=== PATIENT | female | born 1980 | race Two or more races ===

== ENCOUNTER 2025-03-26 14:31 | Outpatient (AMB) | payer MEDICAID, SELFPAY ==
[2025-03-26 14:43] VITALS: BP 115/74; PULSE 89; RESP 19; TEMP 36.8; O2SAT 97; BMI 31.9
--- NOTE | 2025-03-26 14:43 | GSCOFFNT_ITS ---
Vital Signs - [facility] 03/26/25 14:43 Height 1.57 m Height Method Stated Weight 78.727 kg Weight Measurement Method Standing Scale BMI 31.9 BP 115/74 Blood Pressure Source Automatic Cuff Blood Pressure Location Left Upper Arm Position Sitting Respiration 19 Pulse 89 Pulse Source Monitor Temp 98.3 F Temp Source Temporal Artery Scan Pulse Oximetry (%) 97 Oxygen Delivery Method Room Air Med/Allergies Allergies & Medications Allergies No Known Allergies Allergy (Verified 03/26/25 14:44) Medication Reconciliation No Known Home Medications 03/26/25 [History Confirmed 03/26/25] MA Intake Visit Data Collection New Patient or Established: New Patient (never been to [facility]) Seen by Clinical Staff ONLY (RN/MA): No Reason for Visit:: REFERRAL ABDOMINAL PAIN Pain Present Currently: No Shiatsu Therapist Required: Yes PCP or OBGYN visit in last 3 months: Yes Hx Now: No Do You Feel Safe at Home: Yes Authorities Contacted: N/A Smoking Status Smoking Status: Current some day smoker Cessation Counseling Provided: ERIC was advised that quitting smoking is the single most important factor to protect the health of themselves and their family. Discussed the benefits of quitting smoking with patient. Encouraged patient to quit smoking and provided Cessation assistance materials and resources. Tobacco Use: Cigarette Years smoked: 5 Are you interested in quitting?: No Immunization / Flu Flu Vaccine in the Last 12 Months: No Flu Vaccine Exclusion Criteria: Refused by Patient Past Medical History Social History SMOKING STATUS: Smoking status: Current some day smoker HPI HPI Narrative Spoke to pt with in-person development engineer 44F referred for new diagnosis of colon CA. Pt states she had been having bloody stools, and that her mother and two sisters were recently diagnosed with colon CA prompting workup. She underwent colonoscopy by Dr Amaya at [facility] on 02/21/25 with findings of a large, circumferential fungating mass at the hepatic flexure which was confirmed adenoCA, as well as a 3cm TVA in the sigmoid colon and 2cm TVA in the descending colon. Pt states she has not yet had any other workup and has not yet been referred to an oncologist. At the moment pt reports having minimal abdominal pain and occasional nausea, as well as constipation. She denies any vomiting or change in appetite, and has not had any weight loss. She does note some dizziness which she relates to taking PO iron but also was told she has vertigo. She denies any chest pain or difficulty breathing PMH: Anemia, vertigo PSHx: None Meds: ferrous sulfate, nurtec Allergies: NKDA Social hx: previously smoked cigarettes but stopped after recent diagnosis Family hx: pt states her mother recently and was posthumously determined to have colon CA; she has two sisters in their 30s with colon CA as well as brothers in their 40s who had colonoscopies but did not have CA ROS Review of Systems Systems Reviewed: All systems reviewed, normal except as documented Objective/Exam General General Appearance: alert, cooperative and well groomed Resp Respiratory exam: Absent respiratory distress Abdominal Abdominal exam: Present soft; Absent distention or tenderness Results Colonoscopy report reviewed Pathology report reviewed Assessment & Plan Diagnosis / Problem List (1) Colon adenocarcinoma: Status: Acute Assessment & Plan: 44F otherwise healthy referred for new diagnosis of colon CA at the hepatic flexure. I explained with an development engineer that I conferred with our oncologist who recommended consideration of neoadjuvant therapy before surgery, pending metastatic workup. I will order imaging as well as CEA and stat oncology referral and plan on close follow up to discuss next steps. All questions were answered and pt expressed understanding Orders: Orders CT chest abdomen pelvis w 1 Week Carcinoembryonic Antigen 1 Week Referrals Oncology C18.9 - Malignant neoplasm of colon, unspecified Office Procedures GNS Level of Care Nursing/Assessment Patient Status: Initial/New Patient Nursing Assessment/Reassesment: Medication Reconciliation, Update PMH in EMR and Vital Signs Coordination of Care: Complex Care and Chronic Disease 1-5, Consent,records obtained, informed consent, Education Simp Pt/Fam, Results/Orders obtained and Staff clarify orders Special Needs: Language special needs New Patient Charge New Patient Point Assignment: 1089 New Patient Point Charge: HEALTH POLICY ANALYST Level 3 ([id number]) Patient Portal Questionaires Social History Tobacco History Smoking Status: Current some day smoker Domestic Abuse History Do You Feel Safe at Home: Yes Review of Systems Report any current symptoms Only answer those that you have currently: Past Medical History Past Medical History Have you ever been diagnosed with any of the following:
== END 2025-03-26 15:22 | disposition home or self-care (01) ==
PROVIDERS: Supervising Provider Surgery; Visit Provider Surgery
DX: C18.3 Malignant neoplasm of hepatic flexure (principal)
CPT/HCPCS: 99203; G0463

== ENCOUNTER → 2025-04-12 | Outpatient (CLI) | payer MEDICAID, SELFPAY ==
--- NOTE | 2025-04-12 13:50 | XR_ITS ---
Examination: CT chest with intravenous contrast CT abdomen with intravenous contrast CT pelvis with intravenous contrast 2-D coronal and sagittal reconstructions Time of exam: April 12, 2025 1507 hours INDICATIONS: Diagnosis malignant neoplasm colon, staging CTDI: vol (mGy) : 8.85 DLP: (mGycm): 612 Technique: Multiple axial images of the chest, abdomen and pelvis with intravenous contrast, 3.0 mm slice thickness. Images obtained post intravenous injection Isovue 370 60 cc 2-D sagittal coronal reconstructions 3-D reconstructions FINDINGS: There is no thoracic aortic aneurysm dilatation or dissection No pulmonary artery emboli No paratracheal tracheobronchial or bronchopulmonary adenopathy 5 mm pulmonary nodule right upper lobe No pneumonia or pulmonary edema. No focal liver or splenic lesions No gallstones No pancreatic or adrenal mass No abdominal or pelvic lymphadenopathy No bowel obstruction Small fat-containing inguinal hernia Complex partially solid partially cystic right adnexal mass, 5.7 cm Urinary bladder intact Mild osteopenia IMPRESSION: 5 mm pulmonary nodule right upper lobe, recommend continued 6 month follow-up CT chest Recommend pelvic sonography to assess complex partially solid partially cystic right adnexal mass
[2025-04-12 14:15] LABS: HCG Qualitative,Urine Negative
== END | disposition home or self-care (01) ==
LOC: COPL 13:00 → CDIM 13:22
PROVIDERS: PCP Surgery; Referring Provider Surgery; Visit Provider Surgery
DX: R91.1 Solitary pulmonary nodule (principal); R19.09 Other intra-abdominal and pelvic swelling, mass and lump; C18.9 Malignant neoplasm of colon, unspecified; Z32.00 Encounter for pregnancy test, result unknown
CPT/HCPCS: 71260; 74177; 81025; A4649; Q9967

== ENCOUNTER 2025-04-16 14:09 | Outpatient (AMB) | payer MEDICAID, SELFPAY ==
[2025-04-16 14:18] VITALS: BP 119/79; PULSE 85; RESP 19; TEMP 36.7; O2SAT 96; BMI 32.1
--- NOTE | 2025-04-16 14:18 | PD.GSCLVISIT ---
Vital Signs - [facility] 04/16/25 14:18 Height 1.57 m Height Method Stated Weight 79.095 kg Weight Measurement Method Standing Scale BMI 32.1 BP 119/79 Blood Pressure Source Automatic Cuff Blood Pressure Location Left Upper Arm Position Sitting Respiration 19 Pulse 85 Pulse Source Monitor Temp 98.0 F Temp Source Temporal Artery Scan Pulse Oximetry (%) 96 Oxygen Delivery Method Room Air Med/Allergies Allergies & Medications Allergies No Known Allergies Allergy (Verified 04/16/25 14:19) Medication Reconciliation No Known Home Medications 03/26/25 [History Confirmed 04/16/25] MA Intake Visit Data Collection New Patient or Established: Established Patient (seen at [facility] within 3 years) Seen by Clinical Staff ONLY (RN/MA): No Reason for Visit:: FOLLOW UP Pain Present Currently: No New Accounts Banking Representative Required: Yes PCP or OBGYN visit in last 3 months: Yes Hx Now: No Do You Feel Safe at Home: Yes Authorities Contacted: N/A Smoking Status Smoking Status: Current some day smoker Cessation Counseling Provided: ERIC was advised that quitting smoking is the single most important factor to protect the health of themselves and their family. Discussed the benefits of quitting smoking with patient. Encouraged patient to quit smoking and provided Cessation assistance materials and resources. Tobacco Use: Cigarette (recently quit) Years smoked: 5 Are you interested in quitting?: No Immunization / Flu Flu Vaccine in the Last 12 Months: No Flu Vaccine Exclusion Criteria: No Exclusion Criteria Past Medical History Social History SMOKING STATUS: Smoking status: Current some day smoker HPI HPI Narrative Spoke to pt with in-person patient transportation driver 44F referred after she was found to have adenoCA at the hepatic flexure on colonoscopy done for hematochezia here for follow up. Pt underwent CEA testing at [facility] on 04/09/25 with a result of 12.8ng/mL, as well as CT CAP showing a 5mm pulmonary nodule in the right lung as well as a 5.7cm solid and cystic adnexal mass. Pt states she had been told about the mass earlier this year and had been referred to gynecology but she had not followed up yet because she is concerned about addressing her colon CA first. Pt states she is very anxious about this diagnosis and has been suffering hair loss, but she feels physically well with no abdominal pain, no changes in appetite. She reports having constipation for over 20 years so this is not a new symptoms for her but she is managing well with stool softeners her PMD prescribed. Pt is scheduled to see our oncologist Dr Singleton for the first time on 04/30/25 ROS Review of Systems Systems Reviewed: All systems reviewed, normal except as documented Objective/Exam General General Appearance: alert, cooperative and well groomed Resp Respiratory exam: Absent respiratory distress Assessment & Plan Diagnosis / Problem List (1) Colon adenocarcinoma: Status: Acute Assessment & Plan: 44F with family history of colon CA, diagnosed with colon CA after undergoing colonoscopy for hematochezia, with CT CAP negative for metastases and CEA 12.8. As pt is not currently symptomatic she does not require urgent surgery, and I will follow up immediately after her oncology appt 04/30 to discuss next steps (2) Adnexal mass: Status: Acute Assessment & Plan: I explained to pt she will need a pelvic US for further examination of this adnexal mass and that it could require a surgery which could possibly be coordinated with her colectomy. Pt expressed understanding and is agreeable with this plan Plan: Follow up pelvic US Orders: Orders US pelvic complete Today N94.89 - Other specified conditions associated with female genital organs and menstrual cycle Office Procedures GNS Level of Care Nursing/Assessment Patient Status: Established Patient Nursing Assessment/Reassesment: Medication Reconciliation, Update PMH in EMR and Vital Signs Coordination of Care: Complex Care and Chronic Disease 1-5, Consent,records obtained, informed consent, Education Simp Pt/Fam, Results/Orders obtained and Staff clarify orders Special Needs: Language special needs Established Patient Charge Established Patient Point Assignment: 90 Established Patient Point Charge: EP Level 3 (80-115) Patient Portal Questionaires Social History Tobacco History Smoking Status: Current some day smoker Domestic Abuse History Do You Feel Safe at Home: Yes Review of Systems Report any current symptoms Only answer those that you have currently: Past Medical History Past Medical History Have you ever been diagnosed with any of the following:
== END 2025-04-16 15:05 | disposition home or self-care (01) ==
LOC: HODSRG 14:09
PROVIDERS: Supervising Provider Surgery; Visit Provider Surgery
DX: C18.9 Malignant neoplasm of colon, unspecified (principal); N94.89 Other specified conditions associated with female genital organs and menstrual cycle
CPT/HCPCS: 99213; G0463

== ENCOUNTER 2025-04-30 09:42 | Outpatient (RCR) | payer MEDICAID, SELFPAY ==
--- NOTE | 2025-05-02 19:29 | CTCCONSULT_ITS ---
Patient: ERIC MISHRA I. : 1980 MR#: [id number] Page 2 of 5 CONSULTATION NOTE DATE OF CONSULTATION: 04/30/2025 NAME: ERIC MISHRA I. ACCOUNT: [id number] : 1980 AGE: 44 REFERRING PHYSICIAN: Jennyfer Wong MD PRIMARY PHYSICIAN: REASON FOR VISIT: Colon adenocarcinoma ONCOLOGY HISTORY: DIAGNOSIS: Invasive adenocarcinoma of the colon DATE OF DIAGNOSIS: 02/21/2025 STAGE/TNM: Likely stage I TREATMENT HISTORY: Care?Plan Start?Date Cycle Day Intent HISTORY OF PRESENT ILLNESS: 44-year-old female was seen by her primary care with a history of colon cancer in her 2 sisters as well as mother. Patient underwent colonoscopy on 02/21/2025 and was found to have a large circumferential fungating mass at the hepatic flexure which was COND adenocarcinoma. Patient also was found to have 3 cm tubulous villous adenoma in the sigmoid colon and 2 cm tubulovillous adenoma in the descending colon. On subsequent workup by her surgeon patient was also found to have ovarian mass. Patient is now waiting on her surgeon to arrange for possible ultrasound of the abdomen and if needed joint surgery by robotic general surgeon as well as expertise of the ovarian cyst or mass removal Patient wants to avoid surgery asking to start her on chemotherapy. Extensive discussion with Ms. Mishra done with the station cook to explain her that patient need curative surgery and follow-up with her surgeon. Patient may need chemotherapy depending on her stage. OTHER MEDICAL HISTORY/CONDITIONS: Invasive adenocarcinoma colon - dx 02/21/25 Colonoscopy - 02/21/25 - [facility]- Dr. Tam FAMILY HISTORY: Mother:?Colon?-?dx?age?42 Sibling: Brother - Colon - dx 37; Siter - dx 35 Cancer History:?Maternal uncle - colon- dx 50's SOCIAL HISTORY: Occupational?History:?Unemployed Education?Level:?Completed 10th grade Marital?Status:? Tobacco Use:?Socially - maybe once per week ETOH?Use:?Denies Drug?Note:?Denies Social?History?Note:?Lives?with? DOOR SLINGER HISTORY: Menarche?-?Age:?15 Date?LMP:?03/27/2025 Hormone?Use:? control med- 3-4months; Nexop- 3 yrs :?3 Live?Births:?3 Age?1st?:?22 MEDICATIONS: 1. cyanocobalamin (vitamin B-12) - 1,000 mcg 1 tab Daily 2. ferrous sulfate - 325 mg (65 mg iron) 1 tab Daily 3. folic acid - 0.8 mg 1 Capsule Daily 4. multivitamin - 1 tab Daily 5. Vitamin C - 1,000 mg 1 tab Daily 6. Vitamin D2 - 1,000 unit 1 Capsule Daily 7. zinc - 10 mg 1 tab Daily Medications Last Reconciled by Aubrie Shaikh RN on 04/30/2025 ALLERGIES: No Known Drug Allergies REVIEW OF SYSTEMS: A complete 14-point review of systems was performed and is negative except as noted in interval history. PHYSICAL EXAMINATION: VITAL SIGNS: Temperature?99.1, B/P?123/82, Height?62.5?inches, Oxygen?Saturation?99% Weight?173?lbs PAIN: 0 - No pain ECOG Performance Status: 0 - Asymptomatic and fully active GENERAL APPEARANCE: Appears well, in no apparent distress, appropriately interactive. HEENT: Normocephalic, no temporal wasting, normal conjunctiva, no scleral icterus, normal hearing, lips without lesions, neck normal range of motion. CARDIOVASCULAR: Not assessed. PULMONARY: Normal respiratory effort, no respiratory distress or use of accessory muscles, speaking in full sentences, no tachypnea. EXTREMITIES: No pedal edema or cyanosis. SKIN: Normal skin appearance. NEUROLOGIC: Alert and oriented x4. PSHYCHIATRIC: Appropriate affect, mood normal, behavior normal, intact thought and speech. LABORATORY DATA: I have personally reviewed and interpreted each of Ms. Mishra?s relevant lab tests, abnormal findings are below: Date ASSESSMENT/PLAN: Colon adenocarcinoma Patient likely have stage I colon adenocarcinoma and surgery may be curative for her Will follow-up after surgery to see if patient needs any chemotherapy Patient is very young and would benefit from surgery Starting chemotherapy at this stage may be over treatment and especially can lead to neuropathy from oxaliplatin I do not recommend neoadjuvant chemotherapy for Ms. Mishra I spoke to surgeon Dr. Merino and was informed that ultrasound of her abdomen is already ordered Patient is being planned for surgery for both her colon cancer as well as ovarian mass Iron deficiency Patient had been having vaginal bleed Reviewed labs and patient have iron deficiency Will start her on Venofer ORDERS: Order # Description [id number] CEA + CA 929 [id number] Follow Up 4 Week [id number] Iron Panel + Ferritin + Vitamin B-12 + Folic Acid; Serum + Reticulocyte Count RETURN TO CLINIC: 4 weeks BILLING AND COMPLIANCE: I reviewed external records from providers outside my specialty as summarized above. I spent a total of 50 minutes on this patient?s care on the day of their visit excluding time spent related to any billed procedures. This time includes time spent with the patient as well as time spent documenting in the medical record, reviewing patients records and tests, obtaining history, placing orders, communicating with other healthcare professionals, counseling the patient, family or caregiver, and/or care coordination for the diagnoses above. Electronically Signed by: Robert Singleton MD T: 7:26 PM CC: PCP: Referring: Jennfyer Wong This document was completed utilizing speech recognition software. Grammatical errors, random word insertions, pronoun errors, and incomplete sentences are an occasional consequence of this system due to software limitations, ambient noise, and hardware issues. Any formal questions or concerns about the content, text or information contained within the body of this dictation should be directly addressed to the provider for clarification.
== END 2025-05-07 23:59 | disposition home or self-care (01) ==
LOC: SCTC 09:42
PROVIDERS: PCP Internal Medicine; Referring Provider Surgery; Visit Provider Internal Medicine Hematology & Oncology
DX: C18.3 Malignant neoplasm of hepatic flexure (principal); E61.1 Iron deficiency
CPT/HCPCS: 99213; G0463

== ENCOUNTER 2025-05-07 13:55 | Outpatient (AMB) | payer MEDICAID, SELFPAY ==
[2025-05-07 14:07] VITALS: BP 120/82; PULSE 82; RESP 19; TEMP 36.8; O2SAT 98; BMI 31.5
--- NOTE | 2025-05-07 14:07 | PD.GSCLVISIT ---
Vital Signs - [facility]rg Clinic 05/07/25 14:07 Height 1.57 m Height Method Stated Weight 77.678 kg Weight Measurement Method Standing Scale BMI 31.5 BP 120/82 Blood Pressure Source Automatic Cuff Blood Pressure Location Left Upper Arm Position Sitting Respiration 19 Pulse 82 Pulse Source Monitor Temp 98.2 F Temp Source Temporal Artery Scan Pulse Oximetry (%) 98 Oxygen Delivery Method Room Air Med/Allergies Allergies & Medications Allergies No Known Allergies Allergy (Verified 05/07/25 14:08) Medication Reconciliation No Known Home Medications 03/26/25 [History Confirmed 05/07/25] MA Intake Visit Data Collection New Patient or Established: Established Patient (seen at [facility] within 3 years) Seen by Clinical Staff ONLY (RN/MA): No Reason for Visit:: FOLLOW UP Pain Present Currently: No Rubber Thread Spooler Required: Yes PCP or OBGYN visit in last 3 months: Yes Smoking Status Smoking Status: Current some day smoker Cessation Counseling Provided: ERIC was advised that quitting smoking is the single most important factor to protect the health of themselves and their family. Discussed the benefits of quitting smoking with patient. Encouraged patient to quit smoking and provided Cessation assistance materials and resources. Tobacco Use: Cigarette (10 CIGARRETES A WEEK) Years smoked: 3 Are you interested in quitting?: Yes Would you like additional Smoking Cessation Counseling?: No Immunization / Flu Flu Vaccine in the Last 12 Months: No Flu Vaccine Exclusion Criteria: No Exclusion Criteria Past Medical History Social History SMOKING STATUS: Smoking status: Current some day smoker HPI HPI Narrative Spoke to pt with in-person automobile bumper straightener 44F diagnosed with colon adenoCA in [place] 02/2025 after presenting with hematochezia here for follow up after her oncology appt. Pt feels well with no abdominal pain, no changes in bowel habits and is planning to get her pelvic US done today ROS Review of Systems Systems Reviewed: All systems reviewed, normal except as documented Objective/Exam General General Appearance: alert, cooperative and well groomed Resp Respiratory exam: Absent respiratory distress Assessment & Plan Diagnosis / Problem List (1) Colon adenocarcinoma: Status: Acute Assessment & Plan: 44F diagnosed with colon adenoCA in [place] 02/2025 after presenting with hematochezia here for follow up. I offered open hemicolectomy here at [facility] and spoke with one of our gynecologists about concomitant ovarian hysterectomy, however I had mentioned the possibility of minimally invasive surgery previously and pt does strongly prefer to go this route. I reached out to Dr Lorenzo colorectal surgeon at [facility] and he kindly agreed to see her Plan: Will refer to Dr Lorenzo at [facility] (2) Adnexal mass: Status: Acute Plan: Follow up pelvic US and CA 125 Orders: Orders CA 125 1 Week Referrals General surgery C18.9 - Malignant neoplasm of colon, unspecified, N94.89 - Other specified conditions associated with female genital organs and menstrual cycle Office Procedures GNS Level of Care Nursing/Assessment Patient Status: Established Patient Nursing Assessment/Reassesment: Medication Reconciliation, Update PMH in EMR and Vital Signs Coordination of Care: Complex Care and Chronic Disease 1-5, Consent,records obtained, informed consent, Education Simp Pt/Fam, Results/Orders obtained and Staff clarify orders Established Patient Charge Established Patient Point Assignment: 90 Established Patient Point Charge: EP Level 3 (80-115) Patient Portal Questionaires Social History Tobacco History Smoking Status: Current some day smoker Review of Systems Report any current symptoms Only answer those that you have currently: Past Medical History Past Medical History Have you ever been diagnosed with any of the following:
== END 2025-05-07 15:02 | disposition home or self-care (01) ==
PROVIDERS: Supervising Provider Surgery; Visit Provider Surgery
DX: C18.9 Malignant neoplasm of colon, unspecified (principal); K92.1 Melena; N94.89 Other specified conditions associated with female genital organs and menstrual cycle
CPT/HCPCS: 99213; G0463

== ENCOUNTER → 2025-05-07 | Outpatient (CLI) | payer MEDICAID, SELFPAY ==
--- NOTE | 2025-05-07 15:24 | XR_ITS ---
Examination: Pelvic ultrasound, transabdominal, complete Technique: Transabdominal ultrasound of the pelvis performed using grayscale imaging Date and time of exam: May 07, 2025 1636 hours INDICATIONS: CT examination April 12, 2025 partially solid partially cystic right adnexal mass 5.7 cm, history abdominal pelvic pain FINDINGS: Uterus 9.7 cm endometrial stripe 3.0 cm No urinary mass or intrauterine gestation Right ovary 4.0 cm and color-flow, pedunculated 24 x 30 mm cyst, adjacent 5.4 x 4.3 cm cyst Left ovary 4.6 cm arterial flow Cyst with internal echoes 2.7 x 3.6 cm IMPRESSION: Bilateral ovarian cysts as above including complex possible hemorrhagic cyst left ovary 2.7 x 3.6 x 2.6 cm, recommend three-month follow-up pelvic sonography
== END | disposition home or self-care (01) ==
PROVIDERS: PCP Surgery; Referring Provider Surgery; Visit Provider Surgery
DX: N83.202 Unspecified ovarian cyst, left side (principal); N83.201 Unspecified ovarian cyst, right side
CPT/HCPCS: 76856

== ENCOUNTER 2025-05-30 14:23 | Outpatient (RCR) | payer MEDICAID, SELFPAY ==
--- NOTE | 2025-06-04 06:15 | CTCFLWUP_ITS ---
Patient: ERIC MISHRA I. : 1980 Page 3 of 4 FOLLOW UP NOTE DATE OF SERVICE: 05/30/2025 NAME: ERIC MISHRA I. ACCOUNT: [id number] : 1980 AGE: 44 INTERVAL HISTORY: Eric, a female with new diagnosis of invasive adenocarcinoma of the colon and bilateral bleeding ovarian cysts, presented for follow-up of delayed care.. Previous ultrasound confirmed ovarian cysts with transvaginal ultrasound pending. Recent CEA was elevated at 13.1. Plan includes referral to Dr. Lorenzo for minimally invasive robotic surgery evaluation, post-surgical CT scan, iron supplementation pending authorization, and continued monitoring of CEA levels. After follow-up it was found that Dr. Dumont may not be taking her insurance and patient was referred to tertiary care to avoid further care delay. Patient needs surgery to remove her colon cancer. DIAGNOSIS: Invasive adenocarcinoma of the colon DATE OF DIAGNOSIS: 02/21/2025 STAGE/TNM: Likely stage I ONCOLOGY HISTORY: DIAGNOSIS: Invasive adenocarcinoma of the colon DATE OF DIAGNOSIS: 02/21/2025 STAGE/TNM: Likely stage I TREATMENT HISTORY: Care?Plan Start?Date Cycle Day Intent VENOfer?200mg?IV?wkly?for?10?weeks 05/02/2025 1 70 Maintenance HISTORY OF PRESENT ILLNESS: 44-year-old female was seen by her primary care with a history of colon cancer in her 2 sisters as well as mother. Patient underwent colonoscopy on 02/21/2025 and was found to have a large circumferential fungating mass at the hepatic flexure which was COND adenocarcinoma. Patient also was found to have 3 cm tubulous villous adenoma in the sigmoid colon and 2 cm tubulovillous adenoma in the descending colon. On subsequent workup by her surgeon patient was also found to have ovarian mass. Patient is now waiting on her surgeon to arrange for possible ultrasound of the abdomen and if needed joint surgery by robotic general surgeon as well as expertise of the ovarian cyst or mass removal Patient wants to avoid surgery asking to start her on chemotherapy. Extensive discussion with Ms. Mishra done with the paperhanger to explain her that patient need curative surgery and follow-up with her surgeon. Patient may need chemotherapy depending on her stage. OTHER MEDICAL HISTORY/CONDITIONS: Invasive adenocarcinoma colon - dx 02/21/25 Colonoscopy - 02/21/25 - [facility]- Dr. Tam FAMILY HISTORY: Mother:?Colon?-?dx?age?42 Sibling: Brother - Colon - dx 37; Siter - dx 35 Cancer History:?Maternal uncle - colon- dx 50's SOCIAL HISTORY: Occupational?History:?Unemployed Education?Level:?Completed 10th grade Marital?Status:? Tobacco Use:?Socially - maybe once per week ETOH?Use:?Denies Drug?Note:?Denies Social?History?Note:?Lives?with? MANAGER [employer] HISTORY: Menarche?-?Age:?15 Date?LMP:?03/27/2025 Hormone?Use:? control med- 3-4months; Nexop- 3 yrs :?3 Live?Births:?3 Age?1st?:?22 MEDICATIONS: 1. cyanocobalamin (vitamin B-12) - 1,000 mcg 1 tab Daily 2. ferrous sulfate - 325 mg (65 mg iron) 1 tab Daily 3. folic acid - 0.8 mg 1 Capsule Daily 4. meclizine - 25 mg 1 tab Daily 5. multivitamin - 1 tab Daily 6. Vitamin C - 1,000 mg 1 tab Daily 7. Vitamin D2 - 1,000 unit 1 Capsule Daily 8. zinc - 10 mg 1 tab Daily Medications Last Reconciled by Annie Leiva MA on 05/30/2025 ALLERGIES: No Known Drug Allergies REVIEW OF SYSTEMS: A complete 14-point review of systems was performed and is negative except as noted in interval history. PHYSICAL EXAMINATION: VITAL SIGNS: Temperature?99, B/P?117/76, Oxygen?Saturation?97% Weight?170?lbs (Change?since?04/30/25:?-3?lbs) PAIN: 0 - No pain GENERAL APPEARANCE: Appears well, in no apparent distress, appropriately interactive. HEENT: Normocephalic, no temporal wasting, normal conjunctiva, no scleral icterus, normal hearing, lips without lesions, neck normal range of motion. CARDIOVASCULAR: Not assessed. PULMONARY: Normal respiratory effort, no respiratory distress or use of accessory muscles, speaking in full sentences, no tachypnea. EXTREMITIES: No pedal edema or cyanosis. SKIN: Normal skin appearance. NEUROLOGIC: Alert and oriented x4. PSHYCHIATRIC: Appropriate affect, mood normal, behavior normal, intact thought and speech. LABORATORY DATA: I have personally reviewed and interpreted each of the patient?s relevant lab tests, abnormal findings are below: Date ASSESSMENT/PLAN: Colon adenocarcinoma Patient likely have stage I colon adenocarcinoma and surgery may be curative for her Will follow-up after surgery to see if patient needs any chemotherapy Patient is very young and would benefit from surgery Patient diagnosed with hemorrhagic cysts Plan is to do concomitant surgery to gather Patient was planned for robotic surgery but due to his insurance issues she has been delayed I will refer Ms. Mishra to tertiary [facility] so patient can get her treatment for her cancer as soon as possible Severe iron deficiency Likely from bleeding Oral iron is hard to tolerate as patient is getting severely constipated Very confusing with Ms. Mishra's colon cancer as patient's hard dark's stools make it hard for patient to even monitor if she is having a bleeding from her tumor It also upsets her stomach Advised to stop taking oral iron Will wait for insurance to approve her Venofer ORDERS: Order # Description [id number] Comprehensive Metabolic Panel - 12 + CBC with Auto Diff + CEA [id number] RETURN TO CLINIC: I reviewed the diagnosis, prognosis, and recommended treatment/procedure options with the patient (and/or their legal wire rope sales representative), including the potential benefits, risks, side effects and alternative therapies. We also discussed the option of no treatment and the possibility of clinical trial participation, if applicable. All questions were addressed, and they demonstrated understanding. They provided informed consent to proceed with the proposed plan of care. BILLING AND COMPLIANCE: I reviewed external records from providers outside my specialty as summarized above. I spent a total of 50 minutes on this patient?s care on the day of their visit excluding time spent related to any billed procedures. This time includes time spent with the patient as well as time spent documenting in the medical record, reviewing patients records and tests, obtaining history, placing orders, communicating with other healthcare professionals, counseling the patient, family or caregiver, and/or care coordination for the diagnoses above. Electronically Signed by: Robert Singleton MD T: 6:13 AM CC: PCP: Referring: Jennyfer Wong This document was completed utilizing speech recognition software. Grammatical errors, random word insertions, pronoun errors, and incomplete sentences are an occasional consequence of this system due to software limitations, ambient noise, and hardware issues. Any formal questions or concerns about the content, text or information contained within the body of this dictation should be directly addressed to the provider for clarification.
== END 2025-06-07 23:59 | disposition home or self-care (01) ==
LOC: SCTC 14:23
PROVIDERS: Referring Provider Internal Medicine Hematology & Oncology; Visit Provider Internal Medicine Hematology & Oncology
DX: C18.3 Malignant neoplasm of hepatic flexure (principal); N83.202 Unspecified ovarian cyst, left side; N83.201 Unspecified ovarian cyst, right side; E61.1 Iron deficiency
CPT/HCPCS: 99213; G0463

== ENCOUNTER 2025-07-05 12:58 | Outpatient (RCR) | payer MEDICAID, SELFPAY | END 2025-07-08 23:59 | disposition home or self-care (01) | LOC: SCTC 12:58 | PROVIDERS: Referring Provider Internal Medicine Hematology & Oncology; Visit Provider Internal Medicine Hematology & Oncology | DX: E61.1 Iron deficiency (principal); C18.9 Malignant neoplasm of colon, unspecified; N83.202 Unspecified ovarian cyst, left side; N83.201 Unspecified ovarian cyst, right side | CPT/HCPCS: 96365; 96375; A4216; J1756; J2919; J3490; J7040; J7050 ==

== ENCOUNTER 2025-08-07 14:02 | Outpatient (RCR) | payer MEDICAID, SELFPAY ==
--- NOTE | 2025-08-12 22:35 | CTCFLWUP_ITS ---
Patient: ERIC MISHRA I. : 1980 Page 2 of 4 FOLLOW UP NOTE DATE OF SERVICE: 08/07/2025 NAME: ERIC MISHRA I. ACCOUNT: [id number] : 1980 AGE: 44 INTERVAL HISTORY: Eric Dawkins, a 44-year-old female, presented with concerns about colon cancer and Li syndrome. She has a significant family history of colon cancer affecting her mother, two sisters, and brother. The patient recently consulted with [facility] surgeons regarding colon surgery and possible prophylactic oophorectomy. She is awaiting Il syndrome genetic testing results, which will determine surgical approach. The patient is experiencing significant anxiety about her diagnosis and potential treatments, particularly the possibility of needing a colostomy like her mother. ONCOLOGY HISTORY: DIAGNOSIS: Invasive adenocarcinoma of the colon DATE OF DIAGNOSIS: 02/21/2025 STAGE/TNM: Likely stage I TREATMENT HISTORY: Care?Plan Start?Date Cycle Day Intent HISTORY OF PRESENT ILLNESS: 44-year-old female was seen by her primary care with a history of colon cancer in her 2 sisters as well as mother. Patient underwent colonoscopy on 02/21/2025 and was found to have a large circumferential fungating mass at the hepatic flexure which was COND adenocarcinoma. Patient also was found to have 3 cm tubulous villous adenoma in the sigmoid colon and 2 cm tubulovillous adenoma in the descending colon. On subsequent workup by her surgeon patient was also found to have ovarian mass. Patient is now waiting on her surgeon to arrange for possible ultrasound of the abdomen and if needed joint surgery by robotic general surgeon as well as expertise of the ovarian cyst or mass removal Patient wants to avoid surgery asking to start her on chemotherapy. Extensive discussion with Ms. Mishra done with the quill machine operator to explain her that patient need curative surgery and follow-up with her surgeon. Patient may need chemotherapy depending on her stage. OTHER MEDICAL HISTORY/CONDITIONS: Invasive adenocarcinoma colon - dx 02/21/25 Colonoscopy - 02/21/25 - [facility]- Dr. Tam FAMILY HISTORY: Mother:?Colon?-?dx?age?42 Sibling: Brother - Colon - dx 37; Siter - dx 35 Cancer History:?Maternal uncle - colon- dx 50's SOCIAL HISTORY: Occupational?History:?Unemployed Education?Level:?Completed 10th grade Marital?Status:? Tobacco Use:?Socially - maybe once per week ETOH?Use:?Denies Drug?Note:?Denies Social?History?Note:?Lives?with? [employer] HISTORY: Menarche?-?Age:?15 Date?LMP:?03/27/2025 Hormone?Use:? control med- 3-4months; Nexop- 3 yrs :?3 Live?Births:?3 Age?1st?:?22 MEDICATIONS: 1. cyanocobalamin (vitamin B-12) - 1,000 mcg 1 tab Daily 2. ferrous sulfate - 325 mg (65 mg iron) 1 tab Daily 3. folic acid - 0.8 mg 1 Capsule Daily 4. meclizine - 25 mg 1 tab Daily 5. multivitamin - 1 tab Daily 6. Vitamin C - 1,000 mg 1 tab Daily 7. Vitamin D2 - 1,000 unit 1 Capsule Daily 8. zinc - 10 mg 1 tab Daily Medications Last Reconciled by Annie Sommer MD on 08/07/2025 ALLERGIES: REVIEW OF SYSTEMS: A complete 14-point review of systems was performed and is negative except as noted in interval history. PHYSICAL EXAMINATION: VITAL SIGNS: Temperature?98.6, B/P?119/75, Oxygen?Saturation?98% Weight?172?lbs (Change?since?08/01/25:?0.2?lbs) PAIN: 0 - No pain ECOG Performance Status: 0 - Asymptomatic and fully active GENERAL APPEARANCE: Appears well, in no apparent distress, appropriately interactive. HEENT: Normocephalic, no temporal wasting, normal conjunctiva, no scleral icterus, normal hearing, lips without lesions, neck normal range of motion. CARDIOVASCULAR: Not assessed. PULMONARY: Normal respiratory effort, no respiratory distress or use of accessory muscles, speaking in full sentences, no tachypnea. EXTREMITIES: No pedal edema or cyanosis. SKIN: Normal skin appearance. NEUROLOGIC: Alert and oriented x4. PSHYCHIATRIC: Appropriate affect, mood normal, behavior normal, intact thought and speech. LABORATORY DATA: I have personally reviewed and interpreted each of the patient?s relevant lab tests, abnormal findings are below: Date ASSESSMENT/PLAN: Eric Dawkins is a 44-year-old female with colon cancer presenting for discussion of Li syndrome genetic testing and surgical options. Colon cancer Assessment: The patient has colon cancer currently undergoing evaluation for Li syndrome genetic testing. Family history is significant for colon cancer in mother, two sisters, and brother, though this is less typical for Li syndrome given the patient's age at presentation (44 years) compared to the typical younger age of onset (around 24 years). The patient has been referred to [facility] for surgical consultation and has been given options for surgical approach depending on Li syndrome test results. Plan: - Await Li syndrome genetic testing results - Proceed with surgical consultation at [facility] - Surgical options discussed: partial resection versus more extensive resection based on Li syndrome results - Will contact [facility] surgical team to coordinate care - Consider prophylactic oophorectomy during surgery if indicated Anxiety regarding cancer diagnosis Assessment: Patient displaying significant anxiety and emotional distress regarding cancer diagnosis and potential genetic implications. Clinician counseled patient on the importance of remaining calm during upcoming surgical consultation. Plan: - Patient counseled to remain calm and composed during [facility] surgical consultation - Advised to take deep breaths and manage anxiety before meeting with surgeonSevere iron deficiency Likely from bleeding Oral iron is hard to tolerate as patient is getting severely constipated Very confusing with Ms. Mishra's colon cancer as patient's hard dark's stools make it hard for patient to even monitor if she is having a bleeding from her tumor It also upsets her stomach Advised to stop taking oral iron Will wait for insurance to approve her Venofer RETURN TO CLINIC: I reviewed the diagnosis, prognosis, and recommended treatment/procedure options with the patient (and/or their legal aircraft sales representative), including the potential benefits, risks, side effects and alternative therapies. We also discussed the option of no treatment and the possibility of clinical trial participation, if applicable. All questions were addressed, and they demonstrated understanding. They provided informed consent to proceed with the proposed plan of care. BILLING AND COMPLIANCE: I reviewed external records from providers outside my specialty as summarized above. I spent a total of 50 minutes on this patient?s care on the day of their visit excluding time spent related to any billed procedures. This time includes time spent with the patient as well as time spent documenting in the medical record, reviewing patients records and tests, obtaining history, placing orders, communicating with other healthcare professionals, counseling the patient, family or caregiver, and/or care coordination for the diagnoses above. Electronically Signed by: Robert Singleton MD T: 10:32 PM CC: PCP: Referring: Robert Singleton This document was completed utilizing speech recognition software. Grammatical errors, random word insertions, pronoun errors, and incomplete sentences are an occasional consequence of this system due to software limitations, ambient noise, and hardware issues. Any formal questions or concerns about the content, text or information contained within the body of this dictation should be directly addressed to the provider for clarification.
== END 2025-08-07 23:59 | disposition home or self-care (01) ==
LOC: SCTC 14:02
PROVIDERS: Referring Provider Internal Medicine Hematology & Oncology; Visit Provider Internal Medicine Hematology & Oncology
DX: E61.1 Iron deficiency (principal); C18.3 Malignant neoplasm of hepatic flexure; Z80.0 Family history of malignant neoplasm of digestive organs; F41.9 Anxiety disorder, unspecified
CPT/HCPCS: 96365; 96375; 99212; A4216; J1756; J2919; J3490; J7040; G0463

== ENCOUNTER 2025-08-22 13:42 | Outpatient (RCR) | payer MEDICAID, SELFPAY | END 2025-09-07 23:59 | disposition home or self-care (01) | LOC: SCTC 13:42 | PROVIDERS: PCP Physician Assistant; Referring Provider Internal Medicine Hematology & Oncology; Visit Provider Internal Medicine Hematology & Oncology | DX: C18.3 Malignant neoplasm of hepatic flexure (principal); E61.1 Iron deficiency; Z80.0 Family history of malignant neoplasm of digestive organs; F41.9 Anxiety disorder, unspecified | CPT/HCPCS: 96365; 96375; A4216; J1756; J2919; J3490; J7040 ==

== ENCOUNTER 2025-10-08 14:41 | Outpatient (RCR) | payer MEDICAID, SELFPAY ==
--- NOTE | 2025-10-08 16:20 | CTCFLWUP_ITS ---
Patient: ERIC MISHRA I. : 1980 Page 2 of 4 FOLLOW UP NOTE DATE OF SERVICE: 10/08/2025 NAME: ERIC MISHRA I. ACCOUNT: [id number] : 1980 AGE: 44 INTERVAL HISTORY: Eric Dawkins, a 44-year-old female, presented with concerns about colon cancer and Li syndrome. She has a significant family history of colon cancer affecting her mother, two sisters, and brother. The patient recently consulted with [facility] surgeons regarding colon surgery and possible prophylactic oophorectomy. She was told that her surgical appointment will be given to her on her next appointmenT. Patient also needs CT chest abdomen pelvTs. The patient is experiencing significant anxiety about her diagnosis and potential treatments, particularly the possibility of needing a colostomy like her mother. ONCOLOGY HISTORY: DIAGNOSIS: Invasive adenocarcinoma of the colon DATE OF DIAGNOSIS: 02/21/2025 STAGE/TNM: Likely stage I TREATMENT HISTORY: Care?Plan Start?Date Cycle Day Intent VENOfer?200mg?IV?wkly?for?10?weeks 06/14/2025 1 70 Maintenance HISTORY OF PRESENT ILLNESS: 44-year-old female was seen by her primary care with a history of colon cancer in her 2 sisters as well as mother. Patient underwent colonoscopy on 02/21/2025 and was found to have a large circumferential fungating mass at the hepatic flexure which was COND adenocarcinoma. Patient also was found to have 3 cm tubulous villous adenoma in the sigmoid colon and 2 cm tubulovillous adenoma in the descending colon. On subsequent workup by her surgeon patient was also found to have ovarian mass. Patient is now waiting on her surgeon to arrange for possible ultrasound of the abdomen and if needed joint surgery by robotic general surgeon as well as expertise of the ovarian cyst or mass removal Patient wants to avoid surgery asking to start her on chemotherapy. Extensive discussion with Ms. Mishra done with the ore dressing engineer to explain her that patient need curative surgery and follow-up with her surgeon. Patient may need chemotherapy depending on her stage. OTHER MEDICAL HISTORY/CONDITIONS: Invasive adenocarcinoma colon - dx 02/21/25 Colonoscopy - 02/21/25 - [facility]- Dr. Kahla FAMILY HISTORY: Mother:?Colon?-?dx?age?42 Sibling: Brother - Colon - dx 37; Siter - dx 35 Cancer History:?Maternal uncle - colon- dx 50's SOCIAL HISTORY: Occupational?History:?Unemployed Education?Level:?Completed 10th grade Marital?Status:? Tobacco Use:?Socially - maybe once per week ETOH?Use:?Denies Drug?Note:?Denies Social?History?Note:?Lives?with? [employer]OR [employer] HISTORY: Menarche?-?Age:?15 Date?LMP:?03/27/2025 Hormone?Use:? control med- 3-4months; Nexop- 3 yrs :?3 Live?Births:?3 Age?1st?:?22 MEDICATIONS: 1. cyanocobalamin (vitamin B-12) - 1,000 mcg 1 tab Daily 2. ferrous sulfate - 325 mg (65 mg iron) 1 tab Daily 3. folic acid - 0.8 mg 1 Capsule Daily 4. meclizine - 25 mg 1 tab Daily 5. multivitamin - 1 tab Daily 6. ondansetron - 8 mg 1 tab as needed 7. Vitamin C - 1,000 mg 1 tab Daily 8. Vitamin D2 - 1,000 unit 1 Capsule Daily 9. zinc - 10 mg 1 tab Daily Medications Last Reconciled by Annie Smomer MD on 08/07/2025 ALLERGIES: No Known Drug Allergies REVIEW OF SYSTEMS: A complete 14-point review of systems was performed and is negative except as noted in interval history. PHYSICAL EXAMINATION: VITAL SIGNS: GENERAL APPEARANCE: Appears well, in no apparent distress, appropriately interactive. HEENT: Normocephalic, no temporal wasting, normal conjunctiva, no scleral icterus, normal hearing, lips without lesions, neck normal range of motion. CARDIOVASCULAR: Not assessed. PULMONARY: Normal respiratory effort, no respiratory distress or use of accessory muscles, speaking in full sentences, no tachypnea. EXTREMITIES: No pedal edema or cyanosis. SKIN: Normal skin appearance. NEUROLOGIC: Alert and oriented x4. PSHYCHIATRIC: Appropriate affect, mood normal, behavior normal, intact thought and speech. LABORATORY DATA: I have personally reviewed and interpreted each of the patient?s relevant lab tests, abnormal findings are below: Date ASSESSMENT/PLAN: Eric Dawkins is a 44-year-old female with colon cancer presenting for discussion of Li syndrome genetic testing and surgical options. Colon cancer Assessment: The patient has colon cancer currently undergoing evaluation for Li syndrome genetic testing. Family history is significant for colon cancer in mother, two sisters, and brother, though this is less typical for Li syndrome given the patient's age at presentation (44 years) compared to the typical younger age of onset (around 24 years). The patient has been referred to [facility] for surgical consultation and has been given options for surgical approach depending on Li syndrome test results. Patient was told that her genetic testing came back as negative Advised to follow-up with [facility] for surgery Return to clinic after surgical procedure ORDERS: Order # Description [id number] MD Follow Up 2 Months [id number] CEA + Comprehensive Metabolic Panel - 12 + CBC with Auto Diff [id number] CT Scan + Chest + Abdomen and Pelvis + With Contrast RETURN TO CLINIC: I reviewed the diagnosis, prognosis, and recommended treatment/procedure options with the patient (and/or their legal technical services representative), including the potential benefits, risks, side effects and alternative therapies. We also discussed the option of no treatment and the possibility of clinical trial participation, if applicable. All questions were addressed, and they demonstrated understanding. They provided informed consent to proceed with the proposed plan of care. BILLING AND COMPLIANCE: I reviewed external records from providers outside my specialty as summarized above. I spent a total of 50 minutes on this patient?s care on the day of their visit excluding time spent related to any billed procedures. This time includes time spent with the patient as well as time spent documenting in the medical record, reviewing patients records and tests, obtaining history, placing orders, communicating with other healthcare professionals, counseling the patient, family or caregiver, and/or care coordination for the diagnoses above. Electronically Signed by: Robert Singleton MD T: 4:18 PM CC: PCP: Referring: Alfred Melendez This document was completed utilizing speech recognition software. Grammatical errors, random word insertions, pronoun errors, and incomplete sentences are an occasional consequence of this system due to software limitations, ambient noise, and hardware issues. Any formal questions or concerns about the content, text or information contained within the body of this dictation should be directly addressed to the provider for clarification.
== END 2025-11-07 23:59 | disposition home or self-care (01) ==
LOC: SCTC 14:41
PROVIDERS: PCP Physician Assistant; Referring Provider Physician Assistant; Visit Provider Internal Medicine Hematology & Oncology
DX: C18.3 Malignant neoplasm of hepatic flexure (principal); Z80.0 Family history of malignant neoplasm of digestive organs
CPT/HCPCS: 99212; G0463